=== PATIENT | male | born 1960 | race Caucasian/White ===

== ENCOUNTER 2021-10-31 13:10 | Emergency (ER) | payer OTHER ==
[2021-10-31 14:49] LABS: HCT 47.5 % (42.0-52.0); HGB 15.5 g/dl (13.2-18.0); LYMPHOCYTE 13.7 % (15-48); MCH 28.2 pg (25.0-31.0); MCHC 32.6 g/dL (32.0-36.0); MCV 86.4 fL (78.0-100.0); MONOCYTE 11.5 % (0-12); MPV 10.7 fL (6.0-9.5); NEUTROPHIL 70.5 % (41-80); NRBC 0; PLT 279 K/uL (150-400); RDW 12.8 % (11.5-14.0); WBC 7.7 K/uL (4.0-10.5)
[2021-10-31 15:22] LABS: BUN/CREAT RATIO (CALC) 16.7 RATIO; CREATININE 0.84 mg/dL (0.67-1.17); POTASSIUM 3.8 mmol/L (3.5-5.1)
[2021-10-31 15:27] LABS: LACTIC ACID 0.7 mmol/L (0.4-1.9)
[2021-10-31 15:44] LABS: CORONAVIRUS 2019 SARS-COV-2 NEGATIVE (NEGATIVE); INFLUENZA A NAA NEGATIVE (NEGATIVE)
[2021-10-31] MEDS ORDERED: DUONEB 2.5-0.5M1 AMP INH (17:56)
== END 2021-10-31 18:13 | disposition home or self-care (01) ==
LOC: FER 13:10
PROVIDERS: Nurse Practitioner Family
DX: J44.1 Chronic obstructive pulmonary disease with (acute) exacerbation (principal); I10 Essential (primary) hypertension; Z28.310 Unvaccinated for COVID-19; Z20.822 Contact with and (suspected) exposure to COVID-19; Z99.81 Dependence on supplemental oxygen; Z88.2 Allergy status to sulfonamides; Z88.8 Allergy status to other drugs, medicaments and biological substances; Z87.891 Personal history of nicotine dependence
CPT/HCPCS: 36415; 36600; 71045; 71275; 80048; 82803; 83605; 84145; 84484; 85025; 85379; 87040; 93005; 94640; J2930; J7050; Q9967; U0002